=== PATIENT | female | born 1995 | race Hispanic/Latino ===

== ENCOUNTER 2021-07-30 17:35 | Emergency (ER) | payer OTHER, SELFPAY ==
[2021-07-30] MEDS ORDERED: Xylocaine 1% w/ Epi 1:100K 10 ML VIAL ONE ×2 (17:47→18:12)
[2021-07-30] MEDS ORDERED: Ondansetron PF 4 MG/2 ML Vial ONE (17:54)
[2021-07-30] MEDS ORDERED: Morphine 4 MG/ML VIAL ONE (17:54)
[2021-07-30] MEDS ORDERED: Boostrix 0.5 ML (Tdap) VIAL ONE (18:51)
[2021-07-30] MEDS ORDERED: Rabies Vaccine Human 2.5 UNITS VIAL IM ONE (19:15)
[2021-07-30] MEDS ORDERED: CEFAZOLIN 2 GM, Admixture Fee 1 EACH in Sodium Chloride 0.9% 100 ML IVPB SCH (19:45)
[2021-07-30] MEDS ORDERED: Lidocaine 1% (PF) 30 ML VIAL ONE (19:52)
[2021-07-30] MEDS ORDERED: Bacitracin 1 PK ONE (20:37)
== END 2021-07-30 21:15 | disposition home or self-care (01) ==
LOC: ERS 17:35
DX: S81.852A Open bite, left lower leg, initial encounter (principal); Z23 Encounter for immunization; W54.0XXA Bitten by dog, initial encounter; Y93.01 Activity, walking, marching and hiking
CPT/HCPCS: 12015; 90376; 90471; 90675; 90715; 96365; 96375; J0690; J2001; J2270; J2405; J3490

== ENCOUNTER 2021-08-07 11:52 | Emergency (ER) | payer OTHER, SELFPAY | END 2021-08-07 13:56 | disposition home or self-care (01) | LOC: ERS 11:52 | DX: S81.852D Open bite, left lower leg, subsequent encounter (principal); W54.0XXD Bitten by dog, subsequent encounter | CPT/HCPCS: 99282 ==

== ENCOUNTER 2021-08-12 10:47 | Emergency (ER) | payer SELFPAY | END 2021-08-12 11:34 | disposition home or self-care (01) | LOC: ERS 10:47 | DX: S81.812D Laceration without foreign body, left lower leg, subsequent encounter (principal); W54.0XXD Bitten by dog, subsequent encounter ==